=== PATIENT | male | born 1965 | race Caucasian/White ===

== ENCOUNTER 2020-08-11 09:29 | Day surgery (SDC) | payer BC ==
[~2020-08-11 09:29] MED LIST: CEPH500 PO; CLIN300 PO; CYCL10 PO; HYDACE5 PO; Hydrocodone-Ap1 EA23 PO; IBUP600 PO; Janumet 50-5001 EACH PO; Keflex500 MG PO; METF500 PO; Percocet 5-3251 EACH PO; Prednisone10 MG PO; SILD50TA PO; Valium5 MG PO
--- NOTE | 2020-08-11 11:38 | NUR ---
PT TRANSFERED TO STEP FROM RADIOLOGY. PT COMFORTABLE LYING IN BED. NO C/O PAIN OR NAUSEA. OP SITE C/D/I. PT TOLERATING WATER AND WATCHING TV. WILL CONTIUNUE TO MONITOR. CALL LIGHT WITHIN REACH.
--- NOTE | 2020-08-11 13:23 | NUR ---
PT TRANSFERED TO RADIOLOGY FOR F/U SCAN.
== END 2020-08-11 23:23 | disposition home or self-care (01) ==
LOC: CT 09:29
DX: E11.22 Type 2 diabetes mellitus with diabetic chronic kidney disease (principal); E11.319 Type 2 diabetes mellitus with unspecified diabetic retinopathy without macular edema; I12.9 Hypertensive chronic kidney disease with stage 1 through stage 4 chronic kidney disease, or unspecified chronic kidney disease; D63.1 Anemia in chronic kidney disease; N18.4 Chronic kidney disease, stage 4 (severe); N25.81 Secondary hyperparathyroidism of renal origin; E55.9 Vitamin D deficiency, unspecified; Z79.899 Other long term (current) drug therapy; Z79.84 Long term (current) use of oral hypoglycemic drugs
CPT/HCPCS: 50200; 77012; 88329

== ENCOUNTER 2021-12-27 00:47 | Inpatient (IN) | payer BC ==
[~2021-12-27] VITALS: Ht 170.2 cm; Wt 136.9 kg
[2021-12-27] MEDS ORDERED: CATAPRES0.1 MG PO (01:12)
[2021-12-27] MEDS ORDERED: GLIP5 PO (01:13)
[2021-12-27] MEDS ORDERED: NEBIVOLOL HCL10 MG PO (01:13)
[2021-12-27 01:47] LABS: Albumin, Blood 2.7 g/dL (3.4-5.0); Albumin/Globulin Ratio 0.6 (0.8-1.8); Bilirubin, Total 0.3 mg/dL (0.1-1.0); Bun/Creatinine Ratio 7.5 (12.0-20.0); Calcium, Blood 7.2 mg/dL (8.5-10.1); Creatinine, Blood 6.66 mg/dL (0.60-1.20); Globulin, Blood 4.3 g/dL (2.2-4.0); Potassium, Blood 5.6 mmol/L (3.5-5.5)
[2021-12-27 01:50] LABS: BASOPHILS ABSOLUTE AUTO 0.04 K/mm3 (0.00-0.23); BASOPHILS PERCENT AUTO 0 % (0-2); EOSINOPHILS ABSOLUTE AUTO 0.22 K/mm3 (0.00-0.68); EOSINOPHILS PERCENT AUTO 2 % (0-6); Hematocrit 35.2 % (37.0-53.0); Hemoglobin 11.1 g/dL (13.5-17.5); IMMATURE GRAN PERCENT AUTO 1 % (0-1); LYMPHOCYTES ABSOLUTE AUTO 1.62 K/mm3 (0.84-5.20); LYMPHOCYTES PERCENT AUTO 14 % (21-46); MONOCYTES ABSOLUTE AUTO 0.79 K/mm3 (0.16-1.47); MONOCYTES PERCENT AUTO 7 % (4-13); Mean Corpuscular HGB 29.1 pg (26.0-34.0); Mean Corpuscular HGB Conc 31.5 g/dL (31.5-36.5); Mean Corpuscular Volume 92 fL (80-100); Mean Platelet Volume 10.6 fL (9.1-12.4); NEUTROPHILS ABSOLUTE AUTO 9.16 K/mm3 (1.96-9.15); NEUTROPHILS PERCENT AUTO 77 % (41-73); Platelet Count 320 K/mm3 (150-400); RDW Coefficient Variation 13.9 % (11.7-14.2); RDW Standard Deviation 47.2 fL (35.1-46.3); Red Blood Cell Count 3.81 M/mm3 (4.30-5.90); White Blood Cell Count 11.93 K/mm3 (4.00-11.30)
[2021-12-27 04:24] LABS: Source, Urine Foley catheter
[2021-12-27 04:27] LABS: Bilirubin, Urine Neg (Neg); Blood, Urine 2+ (Neg); Glucose Qualitative, Urine 3+ (Neg); Ketones, Urine Neg (Neg); Leukocyte Esterase, Urine Neg (Neg); Nitrite, Urine Neg (Neg); Protein, Urine 4+ (Neg); Urobilinogen, Urine NORM (Normal)
[2021-12-27 04:40] LABS: Appearance, Urine Clear (Clear); Color, Urine Pale Yellow (P-Yellow)
[2021-12-27 04:41] LABS: Bacteria Not Seen /hpf; Squamous Epithelial Cells Not Seen /hpf (Few); White Blood Cells, Urine Not Seen /hpf (0-5)
[2021-12-27 05:30] LABS: CPK Creatine Kinase 215 U/L (39-308)
--- NOTE | 2021-12-27 07:49 | NUR ---
DR. EDMONDS CALLED AND INFORMED PATIENT ON WAY FROM ER AND ER NURSE REPORTS PATIENT THROWING UP BUT IS NOT YET ABLE TO RECEIVE PRN ZOFRAN AGAIN. STATED SHE WOULD LOOK AT PATIENT CHART AND PLACE ORDERS FOR ANTIEMETIC.
--- NOTE | 2021-12-27 08:30 | NUR ---
INITIAL ASSESSMENT PATIENT ARRIVED TO ICU FROM ER JUST BEFORE 0800. PATIENT ALERT AND ORIENTED X 4, AFEBRILE. PATIENT WEAK BUT ABLE TO MOVE ALL EXTREMITIES AND MOVE SELF OVER FROM ER GURNEY TO ICU BED. LUNGS CLEAR THROUGHOUT. PATIENT SATTING 90% AND GREATER ON RA. PATIENT RECEIVING LASIX. PATIENT IN SR WITH BBB. HR 60S TO 70S. SBP 180S. LEGS AND FEET EDEMATOUS. PATIENT GIVEN PRN REGLAN FOR COMPLAINTS OF NAUSEA. MERRILL IN PLACE, DRAINING YELLOW COLORED URINE. ABRASIONS AND SCABS NOTED TO BLES. PATIENT STATES THAT HE HAS BEEN WORKING IN HIS GARAGE LATELY AND BUMPING HIS LEGS. NITRO DRIP INFUSING AT 60 MCG/ MINUTE. PATIENT ORIENTED TO UNIT, ROOM AND CALL SYSTEM. BED LOW AND CALL LIGHT IN REACH. WILL CONTINUE TO MONITOR.
[2021-12-27] MEDS ORDERED: INSULANI (08:40)
[2021-12-27] MEDS ORDERED: BUME1 PO (08:40)
--- NOTE | 2021-12-27 12:30 | NUR ---
PATIENT AFEBRILE. NO COMPLAINTS OF PAIN. PATIENT IN SB TO ST, HR 50S TO 60S. SBP IN THE 150S. PATIENT DENIES NAUSEA. BOWEL SOUNDS HYPERACTIVE. BLOOD SUGAR 211; COVERAGE GIVEN. NO OTHER ACUTE CHANGES TO NOTE ON AT THIS TIME. WILL CONTINUE TO MONITOR.
[2021-12-27 12:35] LABS: BASOPHILS ABSOLUTE AUTO 0.04 K/mm3 (0.00-0.23); BASOPHILS PERCENT AUTO 0 % (0-2); EOSINOPHILS ABSOLUTE AUTO 0.04 K/mm3 (0.00-0.68); EOSINOPHILS PERCENT AUTO 0 % (0-6); Hemoglobin 9.6 g/dL (13.5-17.5); IMMATURE GRAN ABSOLUTE AUTO 0.09 K/mm3 (0.00-0.10); IMMATURE GRAN PERCENT AUTO 1 % (0-1); LYMPHOCYTES ABSOLUTE AUTO 1.09 K/mm3 (0.84-5.20); LYMPHOCYTES PERCENT AUTO 7 % (21-46); MONOCYTES ABSOLUTE AUTO 0.98 K/mm3 (0.16-1.47); MONOCYTES PERCENT AUTO 7 % (4-13); Mean Corpuscular HGB 28.9 pg (26.0-34.0); Mean Corpuscular Volume 93 fL (80-100); Mean Platelet Volume 10.4 fL (9.1-12.4); NEUTROPHILS ABSOLUTE AUTO 12.95 K/mm3 (1.96-9.15); NEUTROPHILS PERCENT AUTO 85 % (41-73); Platelet Count 301 K/mm3 (150-400); RDW Coefficient Variation 13.8 % (11.7-14.2); Red Blood Cell Count 3.32 M/mm3 (4.30-5.90); White Blood Cell Count 15.19 K/mm3 (4.00-11.30)
[2021-12-27 13:10] LABS: Albumin, Blood 2.2 g/dL (3.4-5.0); Albumin/Globulin Ratio 0.6 (0.8-1.8); Bilirubin, Total 0.2 mg/dL (0.1-1.0); Bun/Creatinine Ratio 7.3 (12.0-20.0); Calcium, Blood 6.6 mg/dL (8.5-10.1); Creatinine, Blood 6.95 mg/dL (0.60-1.20); Globulin, Blood 3.6 g/dL (2.2-4.0); Potassium, Blood 6.6 mmol/L (3.5-5.5); Total Protein, Blood 5.8 g/dL (6.4-8.2)
--- NOTE | 2021-12-27 13:29 | NUR ---
DR. EDMONDS CALLED AGAIN AND INFORMED THAT PATIENT'S BLOOD PRESSURE STILL 150S TO 160S ON 35 MCG/ MINUTE NITRO DRIP. INFORMED THAT MEAN AT 101 AND ASKED IF STILL WANTED TO FOLLOW PARAMETER FOR NITRO DRIP OF MEAN [address] EDMONDS STATED YES BUT TO TRY AND DECREASE DRIPDR. ALSO INFORMED THAT POTASSIUM HAS INCREASED FROM 5.6 TO 6.6. NO ORDERS RECEIVED.
[2021-12-27 14:30] LABS: CPK Creatine Kinase 169 U/L (39-308)
--- NOTE | 2021-12-27 17:00 | NUR ---
PATIENT AFEBRILE. HR 50S TO 60S. SBP IN THE 60S. NITRO DRIP AT 25 MCG/ MINUTE. BLOOD SUGAR AT 99; NO COVERAGE INDICATED OR GIVEN. NO OTHER ACUTE CHANGES TO NOTE ON AT THIS TIME. WILL CONTINUE TO MONITOR.
--- NOTE | 2021-12-27 18:12 | NUR ---
CALLED DR. EDMONDS AFTER REQUESTED A COUPLE OF HOURS AGO FOR NITRO DRIP TO BE TITRATED TO OFF OVER 2 HOURS AND TO CALL BACK WITH BP. DR. EDMONDS INFORMED THAT BP IN THE 170S AND THAT, THAT WAS WITH THE METOPROLOL BEING GIVEN EARLY. INFORMED THAT PATIENT HAS PRN HYDRALAZINE BUT THAT THEY ARE NOT ABLE TO RECEIVE IT YET BASED ON ORDER. ASKED IF SHE WOULD LIKE DOSE INCREASED; NO ORDER RECEIVED. DR. EDMONDS STATED TO GIVE HYDRALAZINE WHEN NEXT ABLE TO IF SBP OVER 160 AND TO DC NITRO DRIP.
--- NOTE | 2021-12-27 19:06 | NUR ---
SHIFT SUMMARY PATIENT REMAINED ALERT AND ORIENTED X 4, AFEBRILE. PATIENT HAS HAD NO COMPLIANTS OF PAIN. PATIENT HAS BEEN GETTING AROUND IN BED WELL. PATIENT DOES NEED REMINDED TO REPOSITION SELF IN BED. PATIENT HAS REMAINED SATTING 90% AND GREATER ON RA. LUNGS CLEAR. PATIENT RECEIVED LASIX IN ER AND ICU. PATIENT SB TO SR, HR 50S TO 80S. SBP 130S TO 180S. LEGS REMAIN EDEMATOUS. PATIENT GIVEN PRN REGLAN THIS AM FOR NAUSEA. NO OTHER COMPLAINTS OF NAUSEA THIS SHIFT. MERRILL DRAINED 2150 MLS OF YELLOW COLORED URINE THIS SHIFT. NO CHANGES TO SKIN NOTED. NITRO AT 60 MCG/ MINUTE WHEN ARRIVED FROM ER. NITRO DRIP OFF AND DC'D PER DR. EDMONDS. DR. EDMONDS AWARE THAT BLOOD PRESSURES ARE STILL RUNNING HIGH. US RENAL WITH BLADDER AND ECHO BOTH PERFORMED TODAY. D50 AND INSULIN GIVEN FOR HIGH POTASSIUM OF 6.6. BLOOD SUGARS RANGED FROM 99 TO 276. PATIENT HAD GOOD APPETITE; ON ADA DIET. PATIENT CONTENT AT THIS TIME; NO COMPLAINTS. BED LOW, CALL LIGHT IN REACH. REPORT GIVEN TO ASSUMING ADMINISTRATIVE PROGRAM SPECIALIST NURSE.
--- NOTE | 2021-12-27 19:15 | NUR ---
ASSUMED CARE OF PT. REPORT RECEIVED FROM KAROL MURILLO. PT APPEARS TO BE IN NO APPARENT DISTRESS, AFEBRILE, DENIES PAIN, SOB, BUT C/O FEELING COLD. WARM BLANKETS PROVIDED. HE IS AOX4, PERRL 3MM, LS CLEAR, HEART RRR, GENERAL EDEMA WITH 3+ EDEMA TO BLE. PT HAS MERRILL CATHETER IN PLACE DRAINING CLEAR YELLOW URINE. BP ELEVATED, 180'S/80'S.
[2021-12-27 19:19] LABS: Albumin, Blood 2.1 g/dL (3.4-5.0); Anion Gap 7 mmol/L (6-16); Blood Urea Nitrogen 53 mg/dL (8-24); Bun/Creatinine Ratio 7.7 (12.0-20.0); CO2, Blood 22 mmol/L (21-32); Calcium, Blood 6.6 mg/dL (8.5-10.1); Chloride, Blood 107 mmol/L (98-108); Glomerular Filtration Rate 8 (60-); Glucose, Blood 279 mg/dL (70-99); Phosphorus, Blood 4.5 mg/dL (2.5-4.9); Potassium, Blood 6.1 mmol/L (3.5-5.5); Sodium, Blood 136 mmol/L (136-145)
--- NOTE | 2021-12-27 19:39 | NUR ---
DR SHELBY UPDATED WITH STAT RENAL PANEL. NEW MEDICATION ORDERS RECEIVED.
--- NOTE | 2021-12-27 22:00 | NUR ---
DR SHELBY AT BEDSIDE DISCUSSING POC WITH PT. PT AGREES TO DIALYSIS AND PERMACATH PLACEMENT IN AM. NEW MEDICATION ORDERS RECEIVED FOR HTN.
--- NOTE | 2021-12-27 22:50 | NUR ---
DR. JOSE CONTACTED FOR MEDICATIONS ORDERS FOR SLEEP PER PT REQUEST. NEW ORDERS RECEIVED.
[2021-12-28 03:31] LABS: Hematocrit 28.6 % (37.0-53.0); Hemoglobin 8.7 g/dL (13.5-17.5); Mean Corpuscular HGB 28.6 pg (26.0-34.0); Mean Corpuscular HGB Conc 30.4 g/dL (31.5-36.5); Mean Corpuscular Volume 94 fL (80-100); Mean Platelet Volume 10.3 fL (9.1-12.4); Platelet Count 251 K/mm3 (150-400); RDW Coefficient Variation 14.1 % (11.7-14.2); RDW Standard Deviation 47.9 fL (35.1-46.3); Red Blood Cell Count 3.04 M/mm3 (4.30-5.90); White Blood Cell Count 14.68 K/mm3 (4.00-11.30)
[2021-12-28 03:34] LABS: Influenza A, PCR NEGATIVE (NEGATIVE); Influenza B, PCR NEGATIVE (NEGATIVE); Resp Syncytial Virus, PCR NEGATIVE (NEGATIVE); SARS-Cov-2 (COVID-19) PCR, MMC NEGATIVE (NEGATIVE)
[2021-12-28 03:47] LABS: Anion Gap 8 mmol/L (6-16); Blood Urea Nitrogen 54 mg/dL (8-24); Bun/Creatinine Ratio 7.7 (12.0-20.0); CO2, Blood 20 mmol/L (21-32); Calcium, Blood 6.7 mg/dL (8.5-10.1); Chloride, Blood 108 mmol/L (98-108); Creatinine, Blood 7.03 mg/dL (0.60-1.20); Glomerular Filtration Rate 8 (60-); Glucose, Blood 130 mg/dL (70-99); Phosphorus, Blood 4.4 mg/dL (2.5-4.9); Potassium, Blood 5.1 mmol/L (3.5-5.5); Sodium, Blood 136 mmol/L (136-145)
--- NOTE | 2021-12-28 05:44 | NUR ---
PT SLEEPS RESTLESSLY WITH BRIEF INTERRUPTIONS FOR CARE. HE WEARS HIS CPAP WHEN GOING TO SLEEP, BUT TAKES IT OFF DURING SLEEP. BP WNL ON CURRENT MEDICATIONS. I/O 475/1150. PT IS NPO SINCE MIDNIGHT FOR PROCEDURE. PLAN TO CALL CONSULT TO DR GONZALEZ FOR PERMACATH PLACEMENT IN AM. WILL CONTINUE TO MONITOR AND REPORT TO ONCOMING SHIFT.
--- NOTE | 2021-12-28 08:13 | NUR ---
CALLED DR. SHELBY AND INFORMED HR IN THE 50S AND BLOOD PRESSURE 128/58 BEFORE GIVING AM HTN DRUGS. ORDERS RECEIVED.
--- NOTE | 2021-12-28 08:30 | NUR ---
INITIAL ASSESSMENT PATIENT ALERT AND ORIENTED X 4, AFEBRILE. PATIENT DENIES PAIN OR DISCOMFORT. PATIENT SLIGHTLY WEAK BUT ABLE TO REPOSITION SELF BUT DOES NEED REMINDERS. LUNG SOUNDS CLEAR. PATIENT SATTING 90% AND GREATER ON RA. PATIENT WEARS CPAP AT HS. PATIENT SB WITH L BBB AND PROLONGED QT. HR IN THE 50S. SBP 1-TEENS TO 130S. 3+ EDEMA NOTED TO LEGS AND FEET. LEGS APPEAR SHINY AND TIGHT. PATIENT DENIES NAUSEA. NPO AT THIS TIME FOR PENDING PERMACATH PLACEMENT TODAY. NORMOACTIVE BOWEL SOUNDS NOTED. LAST BM 2 DAYS AGO. MERRILL DRAINING YELLOW COLORED URINE. ABRASIONS/ SCABS TO BLES. SKIN PALE AND COOL. IVS FLUSHED AND SALINE LOCKED. BED LOW, CALL LIGHT IN REACH. WILL CONTINUE TO MONITOR PATIENT FREQUENTLY THROUGHOUT SHIFT.
--- NOTE | 2021-12-28 12:15 | NUR ---
PATIENT AFEBRILE. HR IN THE 50S. SBP IN THE 120S. PATIENT SATTING 90% AND GREATER ON RA. BLOOD SUGAR 127. PATIENT OOB TO CHAIR WITH 1 PERSON ASSIST. NO COMPLAINTS. NO OTHER ACUTE CHANGES TO NOTE ON. WILL CONTINUE TO MONITOR.
--- NOTE | 2021-12-28 12:35 | NUR ---
PATIENT TAKEN TO NEWSPAPER COLUMNIST FOR PERMACATH PLACEMENT.
--- NOTE | 2021-12-28 16:39 | NUR ---
PATIENT HAS BEEN SLEEPING. DIALYSIS BEING PERFORMED IN ROOM. PATIENT AFEBRILE. HR 40S TO 50S. SBP 150S TO 160S. NO OTHER ACUTE CHANGES AT THIS TIME. NO COMPLAINTS. WILL CONTINUE TO MONITOR.
--- NOTE | 2021-12-28 18:46 | NUR ---
SHIFT SUMMARY PATIENT REMAINED ALERT AND ORIENTED X 4, AFEBRILE. PATIENT HAD NO COMPLAINTS OF PAIN. PATIENT WEAK BUT ABLE TO MOVE AROUND IN BED. PATIENT, HOWEVER, REFUSED MOST OF THE DAY TO TURN OFF OF HIS BACK. PATIENT 1 PERSON ASSIST TO CHAIR. PATIENT REMAINED ON RA WHILE AWAKE AND ON CPAP WHILE SLEEPING. PATIENT REMAINED SB TO SR, HR 40S TO 50S. SBP 1-TEENS TO 180S. LEGS REMAIN VERY EDEMATOUS. NO COMPLAINTS OF NAUSEA THIS SHIFT. NO BM THIS SHIFT. PATIENT ON CARDIAC/ ADA DIET AND HAS GOOD APPETITE. 850 MLS OF YELLOW URINE DRAINED FROM MERRILL. NO CHANGES TO SKIN NOTED. IVS REMAIN SALINE LOCKED. METOPROLOL AND CATAPRES DOSES LOWERED THIS SHIFT. HR PARAMETERS SET FOR METOPROLOL AND CATAPRES. PERMACATH PLACED THIS SHIFT. PATIENT HAD DIALYSIS AND HAD 1400 MLS PULLED OFF. BLOOD SUGARS RANGED FROM 120S TO 150S. NO COMPLAINTS AT THIS TIME. BED LOW, CALL LIGHT IN REACH. REPORT WILL BE GIVEN TO ASSUMING WATER SYSTEMS ENGINEER NURSE SHORTLY.
--- NOTE | 2021-12-28 20:58 | NUR ---
ASSUMED CARE PATIENT IS ALERT AND ORIENTED X4. FOLLOWS COMMANDS AND COOPERATIVE WITH CARE. 02 SATS >95% ON RA, DENIES SOB. HR SR @60s WITH BBB AND PROLONGED QT. BP HYPERTENSIVE, MEDICATED PER EMAR. EDEMA IN BLE, ELEVATED ON PILLOWS. MERRILL DRAINING CLEAR YELLOW TO GRAVITY. PATIENT ABLE TO REPOSITON SELF IN BED. CALL LIGHT IN REACH.
[2021-12-29 03:41] LABS: Hematocrit 28.6 % (37.0-53.0); Hemoglobin 8.9 g/dL (13.5-17.5)
[2021-12-29 04:07] LABS: Anion Gap 6 mmol/L (6-16); Blood Urea Nitrogen 50 mg/dL (8-24); Bun/Creatinine Ratio 7.9 (12.0-20.0); CO2, Blood 26 mmol/L (21-32); Calcium, Blood 7.1 mg/dL (8.5-10.1); Chloride, Blood 106 mmol/L (98-108); Creatinine, Blood 6.29 mg/dL (0.60-1.20); Glomerular Filtration Rate 9 (60-); Glucose, Blood 177 mg/dL (70-99); Phosphorus, Blood 5.2 mg/dL (2.5-4.9); Potassium, Blood 5.3 mmol/L (3.5-5.5); Sodium, Blood 138 mmol/L (136-145)
--- NOTE | 2021-12-29 06:02 | NUR ---
SHIFT SUMMARY PATIENT IS ALERT AN ORIENTED X4. 02 SATS >93% ON CPAP THROUGH THE NIGHT WHILE SLEEPING. BP STABLE. HR SB WITH BBB IN THE 50s. MERRILL DRAINING TO GRAVITY. PATIENT SLEPT MOST THE NIGHT, ABLE TO REPOSITION SELF BUT INSISTED ON SLEEPING ON HIS BACK MOSTLY. NO ACUTE CHANGES. CALL LIGHT IN REACH.
[2021-12-29 10:10] LABS: HBSAG SCREEN Negative (Negative); HEP A AB, IGM Negative (Negative); HEP B CORE AB, IGM Negative (Negative); HEP C VIRUS AB <0.1 (0.0-0.9)
--- NOTE | 2021-12-29 10:28 | NUR ---
ASSUMED CARE OF PT, REPORT RCVD FROM KAROL PARHAM. PT ALERT AND ORIENTED, PLEASANT AND COOPERATIVE WITH CARE. PT ON CPAP OVERNIGHT, CURRENTLY ON ROOM AIR WITH SATS>90%. PT DENIES ANY NEEDS AT THIS TIME. PLAN FOR DIALYSIS @ 0900. PT UPDATED WITH PLAN OF CARE. SEE FULL SHIFT ASSESSMENT.
--- NOTE | 2021-12-29 12:47 | NUR ---
PT BACK FROM DIALYSIS. REMOVED MERRILL CATHETER AND ENCOURAGED PT TO AMBULATE.
--- NOTE | 2021-12-29 15:11 | NUR ---
MESSAGE LEFT FOR BOTTLE LINE WORKER REGARDING PT'S NEED FOR OUTPATIENT DIALYSIS. PER DR. SHELBY, PT OKAY TO DISCHARGE ONCE DIALYSIS IN PLACE OUTPATIENT.
--- NOTE | 2021-12-29 16:54 | NUR ---
SPOKE WITH [facility] ADMITTING. PT HAS DIALYSIS BED HELD PENDING: HEP B PANEL, TB, DIALYSIS FLOW SHEET, AND CHEST XRAY. ORDERS FOR BLOOD TESTING PLACED. PT AWARE OF PLAN AND APPEARS MOTIVATED TO DISCHARGE AND PARTICIPATE IN OUTPATIENT DIALYSIS. [facility], [facility] ADMITTING FAX # .
--- NOTE | 2021-12-29 18:07 | NUR ---
SHIFT SUMMARY PT REMAINS ALERT AND ORIENTED, PLEASANT AND COOPERATIVE WITH CARE. PT INDEPENDENT IN ROOM. PT DENIES NEEDS. VSS T/O SHIFT. WILL REPORT TO ONCOMING NURSE.
--- NOTE | 2021-12-29 19:00 | NUR ---
ASSUMPTION OF CARE PT SITTING IN CHAIR TALKING ON CELL PHONE. PT STANDS UP AND MOVES AROUND ROOM INDEPENDENTLY WITH STEADY GAIT. PT IS PLEASANT, PARTICIPATES IN CONVERSATION. WHEN ASKED HOW PT IS FEELING HE STS "I FEEL GREAT. I WOULD LIKE TO GO HOME". PT COOPERATIVE WITH CARE AND UP TO DATE WITH PLAN. PT DENIES PAIN. VSS. PT GIVEN WARM BLANKETS, FRESH WATER AND PM MEDS. PT REQUESTING MEDICATION FOR SLEEP LATER IN EVENING BUT DENIES ADDITIONAL NEEDS AT THIS TIME. SEE SHIFT ASSESSMENT.
--- NOTE | 2021-12-29 23:58 | NUR ---
UPDATE PT STS HE WOULD LIKE TO GET READY FOR BED. PT GETS UP INDEPENDENTLY TO VOID IN TOILET, STEADY GAIT. PT PROVIDED WARM BLANKETS AND MEDICATED PER EMAR. CPAP PLACED AT THIS TIME. PT REQUESTS UNINTERRUPTED REST AND DENIES ADDITIONAL NEEDS AT THIS TIME, VS REMAIN STABLE.
[2021-12-30 03:26] LABS: Hematocrit 29.2 % (37.0-53.0); Hemoglobin 9.2 g/dL (13.5-17.5)
[2021-12-30 03:45] LABS: Anion Gap 6 mmol/L (6-16); Blood Urea Nitrogen 43 mg/dL (8-24); CO2, Blood 27 mmol/L (21-32); Calcium, Blood 7.5 mg/dL (8.5-10.1); Chloride, Blood 103 mmol/L (98-108); Glomerular Filtration Rate 11 (60-); Glucose, Blood 167 mg/dL (70-99); Phosphorus, Blood 4.9 mg/dL (2.5-4.9); Potassium, Blood 4.5 mmol/L (3.5-5.5); Sodium, Blood 136 mmol/L (136-145)
--- NOTE | 2021-12-30 06:17 | NUR ---
SHIFT SUMMARY PT HAS SLEPT THROUGH THE MAJORITY OF THE NIGHT, WAKES TO VERBAL STIMULI. PT REMAINS ALERT AND ORIENTED. DR SHELBY ROUNDED THIS AM, CONTINUE PLAN FOR OUTPATIENT DIALYSIS. WILL REPORT TO ONCOMING RN.
--- NOTE | 2021-12-30 13:51 | NUR ---
Pt. is sitting up in a chair and is alert. Pt. welcomes my visit. Pt. is unsettled about the limited availablity for ongoing dialysis in our area. Pt. also verbalizes gratitude for the dialysis care received in ICU. Listen empathetically. Pt. displays evidence of a renewed commitment to fight for his health. Develop rapport. Leivasy for pt. Pt. verbalizes gratitude for the visit, and the prayer in particular.
--- NOTE | 2021-12-30 18:01 | NUR ---
SHIFT SUMMARY NO ACUTE CHANGES THIS SHIFT. PT CONTINUES TO AWAIT PLACEMENT FOR OUTPT DIALYSIS. NO DIALYSIS THIS SHIFT. SEE SHIFT ASSESSMENT FOR FULL ASSESSMENT. PT INDEPENDENT. USES CALL LIGHT APPROPRIATELY, ABLE TO MAKE NEEDS KNOWN. VSS. WILL CONTINUE TO MONITOR UNTIL REPORT TO ONCOMING NURSE.
[2021-12-31 04:30] LABS: Hematocrit 28.2 % (37.0-53.0); Hemoglobin 9.1 g/dL (13.5-17.5)
[2021-12-31 04:57] LABS: Anion Gap 7 mmol/L (6-16); Blood Urea Nitrogen 53 mg/dL (8-24); Bun/Creatinine Ratio 8.2 (12.0-20.0); CO2, Blood 26 mmol/L (21-32); Calcium, Blood 7.5 mg/dL (8.5-10.1); Chloride, Blood 103 mmol/L (98-108); Creatinine, Blood 6.46 mg/dL (0.60-1.20); Glomerular Filtration Rate 9 (60-); Glucose, Blood 185 mg/dL (70-99); Phosphorus, Blood 5.5 mg/dL (2.5-4.9); Potassium, Blood 5.1 mmol/L (3.5-5.5); Sodium, Blood 136 mmol/L (136-145)
--- NOTE | 2021-12-31 05:29 | NUR ---
PATIENT ARRIVED TO ROOM 324 FROM ICU2 VIA WHEELCHAIR. HE IS ALERT AND ORIENTED X4 WITH NO COMPLAINTS OF PAIN OR SHORTNESS OF BREATH. PATIENT SELF TRANSFERRED INTO BED AND WAS ORIENTED WITH NEW SURROUNDINGS. CALL LIGHT WITHIN REACH.
--- NOTE | 2021-12-31 05:49 | NUR ---
TRANSFER TO RM 324 PT TRANSFERED TO RM 324 VIA WHEELCHAIR AT 0508. PT IS ALERT/ ORIENTED X4 AND ABLE TO MAKE HIS NEEDS KNOWN. PT SLEPT FOR ABOUT 6 HOURS LAST NIGHT AND MOST OF THE TIME ON CPAP. WHILE AWAKE IS ON RA. VSS. IS ABLE TO AMBULATE ON HIS OWN IN THE ROOM. SEE SHIFT ASSESSMENT FOR FULL ASSESSMENT. REPORT GIVEN TO MEDICAL FLOOR RN.
[2021-12-31 14:12] LABS: QUANTIFERON MITOGEN VALUE >10.00 IU/mL (.); QUANTIFERON TB1 AG VALUE 0.06 IU/mL (.); QUANTIFERON TB2 AG VALUE 0.03 IU/mL (.); QUANTIFERON-TB GOLD PLUS Negative (Negative)
--- NOTE | 2021-12-31 18:05 | NUR ---
SHIFT SUMMARY PT HAD DIALYSIS THIS AM AND TOLERATED IT WELL. HE IS ANXIOUS TO BE DISCHARGED HOME AND GET A CHAIR. HE IS CALM AND COMPLAINT WITH CARE. WILL CONTINUE TO MONITOR.
[2022-01-01 05:34] LABS: Hematocrit 29.3 % (37.0-53.0); Hemoglobin 9.4 g/dL (13.5-17.5)
[2022-01-01 06:03] LABS: Albumin, Blood 2.1 g/dL (3.4-5.0); Anion Gap 6 mmol/L (6-16); Blood Urea Nitrogen 46 mg/dL (8-24); Bun/Creatinine Ratio 7.6 (12.0-20.0); CO2, Blood 26 mmol/L (21-32); Calcium, Blood 7.5 mg/dL (8.5-10.1); Chloride, Blood 104 mmol/L (98-108); Creatinine, Blood 6.09 mg/dL (0.60-1.20); Glomerular Filtration Rate 10 (60-); Glucose, Blood 197 mg/dL (70-99); Phosphorus, Blood 4.7 mg/dL (2.5-4.9); Potassium, Blood 4.4 mmol/L (3.5-5.5); Sodium, Blood 136 mmol/L (136-145)
--- NOTE | 2022-01-01 06:22 | NUR ---
SHIFT SUMMARY PATIENT ALERT AND ORIENTED. HAD NO COMPLAINTS OF PAIN OR SHORTNESS OF BREATH. NO ACUTE ISSUES NOTED OVERNIGHT. CALL LIGHT WITHIN REACH. REPORT GIVEN TO ONCOMING RN.
--- NOTE | 2022-01-01 18:21 | NUR ---
SHIFT SUMMARY NO ACUT CHNAGES. STILL HYPERTENSIVE. PT WAS ABLE TO WALK AROUND THE [place] FOR EXCERCISE. HE WAS EVALUATED BY OT AND PT AND WAS RELEASED FROM BOTH. WILL CONTINUE TO MONITOR.
--- NOTE | 2022-01-02 04:31 | NUR ---
Pt's BP at start of shift 7:41pm 190/88, scheduled meds given and BP rechecked at 10:35 pm 171/79, BP spot checked at 2:15 am 190/81 PRN hydralazine given. BP rechecked 3:32 am and SBP increased to 195/81. MD called for a consult. MD ordered repeat PRN 10mg Hydralazine.
--- NOTE | 2022-01-02 06:11 | NUR ---
Pt is independent and able to ambulate and tranfer in and out of bed. Patient blood pressure has been high throughout the night and evening. PRN hydralazine 10 mg given for BP of 190/81. Recheck in 1 hour was 195/81. Informatics Spec called MD and MD advised to repeate Hydalizine of 10 mg. recheck was 173/80 client resting in bed. Will report to oncoing RN upon arrival.
--- NOTE | 2022-01-02 21:25 | NUR ---
VOICED DESIRE FOR MORE FLUIDS, GIVEN ENOUGH TO TAKE HSMEDS. AFFECT SOMEWHAT FLAT. FLUID INTAKE REMAINS LIMITED TO PREVENT FLUID OVERLOAD. CALL LIGHT IN REACH
--- NOTE | 2022-01-03 03:55 | NUR ---
KNIT GOODS CUTTER HAND SUMMARY AWAKE UNTIL HS, TOLERATED MEDS WITH SMALL AMT OF WATER, VOICED FRUSTRATION RE LIMITED FLUID INTAKE. BP LOWER THAN NOTED LAST NIGHT. WILL CONTINUE TO MONITOR AND ADMINISTER MEDS NEEDED - SEE MAR FOR DETAILS. CPAP IN USE FOR SLEEP APNEA. HAS BEEN RESTING QUIETLY WITH FEW INTERRUPTIONS SINCE. CALL LIGHT IN REACH.
[2022-01-03 05:56] LABS: Hematocrit 29.1 % (37.0-53.0); Hemoglobin 9.3 g/dL (13.5-17.5)
[2022-01-03 06:22] LABS: Albumin, Blood 2.3 g/dL (3.4-5.0); Anion Gap 8 mmol/L (6-16); Blood Urea Nitrogen 69 mg/dL (8-24); Bun/Creatinine Ratio 9.1 (12.0-20.0); CO2, Blood 21 mmol/L (21-32); Calcium, Blood 7.7 mg/dL (8.5-10.1); Chloride, Blood 107 mmol/L (98-108); Creatinine, Blood 7.56 mg/dL (0.60-1.20); Glomerular Filtration Rate 7 (60-); Glucose, Blood 212 mg/dL (70-99); Phosphorus, Blood 5.8 mg/dL (2.5-4.9); Potassium, Blood 4.8 mmol/L (3.5-5.5); Sodium, Blood 136 mmol/L (136-145)
--- NOTE | 2022-01-03 17:51 | NUR ---
SHIFT SUMMARY; PATIENT UP TO SHOWER TODAY. HE IS INDEPENDANT IN ROOM AND RINSES HIS CLOTHING AND HANGS THEM TO DRY IN BATHROOM. HE REMAINS HYPERTENSIVE EVEN AFTER ADMINISTERING HYDRALAZINE. B/P IS 162 SYSTOLIC AND PULSE OF 73. PAITENT IS NOT SYMPTOMATIC. NO HEADACHE NO CHEST PAIN NO SOB. PATIENT RECEIVED DIALYSIS IN ROOM TODAY. HE ASKS MANY QUESTIONS OF DIALYSIS NURSE JESSICA ABOUT DIET AND ALSO PERITONEAL DIALYSIS. IN ROOM AND ADVISES PATIENT THAT HE WILL NEED TO LOSE 15 TO 20 POUNDS AND STAY ON A RENAL DIET AND BE ON HEMODIALYSIS FOR 3 MONTHS BEFORE HE WILL CONSIDER HIM FOR PERITONEAL DIALYSIS. PATIENT VERBALIZED UNDERSTANDING. PLAN IS FOR DISCHARGE TUESDAY AFTER DIALYSIS AND BE ADMITTED TO [facility] FOR TREATMENT ON TUESDAY PER COLIN ROBERTO RNBUHR DRESSER NOTE. WILL REMAIN AVAILABLE FOR THIS PATIENT FOR ANY WANTS OR NEEDS UNTIL SHIFT HAND OFF FOR NOC SHIFT. JEANNE LOPEZ RN
--- NOTE | 2022-01-04 03:56 | NUR ---
RN TESTING SUMMARY CONTINUES ON FLUID RESTRICTION FOR FLUID OVERLOAD. ANTIHYPERTENSIVE MEDS ADMINISTERED ORDERED - SEE MAR FOR DETAILS. ALTHOUGH SBP HIGH, MEDS EFFECTIVE. HAS BEEN RESTING QUIETLY FOR MOST OF THE SHIFT SINCE HS, AFTER HE WATCHED THE SUPERBOWL. CPAP IN USE. NO NOTED S/S ACUTE DISTRESS. CALL LIGHT IN REACH
[2022-01-04 04:48] LABS: Hematocrit 31.3 % (37.0-53.0); Hemoglobin 10.1 g/dL (13.5-17.5)
[2022-01-04 05:16] LABS: Albumin, Blood 2.5 g/dL (3.4-5.0); Anion Gap 11 mmol/L (6-16); Blood Urea Nitrogen 56 mg/dL (8-24); Bun/Creatinine Ratio 8.8 (12.0-20.0); CO2, Blood 22 mmol/L (21-32); Calcium, Blood 8.1 mg/dL (8.5-10.1); Chloride, Blood 104 mmol/L (98-108); Creatinine, Blood 6.36 mg/dL (0.60-1.20); Glomerular Filtration Rate 9 (60-); Glucose, Blood 225 mg/dL (70-99); Phosphorus, Blood 5.2 mg/dL (2.5-4.9); Potassium, Blood 4.8 mmol/L (3.5-5.5); Sodium, Blood 137 mmol/L (136-145)
--- NOTE | 2022-01-04 11:05 | NUR ---
PT PLEASNT COOP A/O. TALKATIVE. DIALYSIS PERMACATH RUCW. CDI. DIALYSIS YEST. EXPCT TOMORROW AGAIN. H/R REG, NO MURMER NOTED. NO TELE. LUNGS CLEAR, RESP EASY, UNLABORED. ON R.A. VOIDS IND TO BATHROOM. BED IN LOW POSITION, CALL LITE IN REACH, CALLS APPROP
--- NOTE | 2022-01-04 16:45 | NUR ---
PT PLEASANT TODAY. DESIRING TO SLEEP MOST OF DAY. KEPT LIGHT OFF, PT AWAKENS EASILY FOR MEDS ETC. EXPECTING TO D/C TOMORROW AFTER DIALYSIS IS PLAN. NO OTHER CONCERNS NOTED. BED IN LOW POSITION, CALL LITE IN REACH, INDEPENDANT IN ROOM. CALLS APPROP
--- NOTE | 2022-01-05 04:17 | NUR ---
SHIFT SUMMARY A/O AND IND IN RM. PLEASANT THROUGHOUT SHIFT. VSS. FOLLOWED FLUID RESTRICTION. REPORTS VOIDING AND PASSING STOOL. NO PAIN REPORTED. CALLING APPROPRIATLEY, CALL LIGHT IN REACH. WILL CONTINUE TO MONITOR AND REPORT TO ONCOMING RN.
--- NOTE | 2022-01-05 06:38 | NUR ---
APPROACHED DR SHELBY BY PT ROOM AND REPORTED PT LAB VALUES, 9.7 HgB AND 5.3 POTASSIUM.
[2022-01-05] MEDS ORDERED: AMLO5 PO (12:24)
[2022-01-05] MEDS ORDERED: METO25 PO (12:25)
[2022-01-05] MEDS ORDERED: HUMALOG KW100 UNIT/1 SC (12:26)
[2022-01-05] MEDS ORDERED: TEMA7.5 PO (12:26)
[2022-01-05] MEDS ORDERED: CATAPRES-TTS 21 EAC1 TOP (12:27)
[2022-01-05] MEDS ORDERED: BUME2 PO (12:28)
[2022-01-05] MEDS ORDERED: CATAPRES0.1 MG PO (12:30)
--- NOTE | 2022-01-05 13:30 | NUR ---
DISCHARGE SUMMARY PATIENT IS ALERT AND ORIENTED. PATIENT HAD DIALYSIS TODAY. VITAL SIGNS REVIEWED. PATIENT HAS HAD NO COMPLAINTS OF SOB, PAIN, NAUSEA, VOMITTING THIS SHIFT. PATIENT HAS HAD NO ACUTE EVENTS THIS SHIFT. PATIENT WAS WHEELED OUT TO PATIENTS OWN VEHICLE BY CHASE RASHID. IVS REMOVED WNL.
== END 2022-01-05 13:19 | disposition home or self-care (01) | DRG 673 ==
LOC: ER 00:47 → ERHOLD 03:54 → ICUE 03:54 → MEDS 12-31 05:14
PROVIDERS: Internal Medicine; Internal Medicine Nephrology; Student in an Organized Health Care Education/Training Program; ADMIT Internal Medicine
PROC: 5A1D70Z Performance of Urinary Filtration, Intermittent, Less than 6 Hours Per Day (ICD-10-PCS; principal; 2021-12-28)
PROC: 5A09357 Assistance with Respiratory Ventilation, Less than 24 Consecutive Hours, Continuous Positive Airway Pressure (ICD-10-PCS; 2021-12-28)
PROC: 0JH63XZ Insertion of Tunneled Vascular Access Device into Chest Subcutaneous Tissue and Fascia, Percutaneous Approach (ICD-10-PCS; 2021-12-28)
PROC: 02HV33Z Insertion of Infusion Device into Superior Vena Cava, Percutaneous Approach (ICD-10-PCS; 2021-12-28)
PROC: B518YZA Fluoroscopy of Superior Vena Cava using Other Contrast, Guidance (ICD-10-PCS; 2021-12-28)
PROC: B548ZZA Ultrasonography of Superior Vena Cava, Guidance (ICD-10-PCS; 2021-12-28)
DX: N17.9 Acute kidney failure, unspecified (principal); J96.01 Acute respiratory failure with hypoxia; I50.31 Acute diastolic (congestive) heart failure; I13.2 Hypertensive heart and chronic kidney disease with heart failure and with stage 5 chronic kidney disease, or end stage renal disease; I16.1 Hypertensive emergency; E87.2 Acidosis; Z68.41 Body mass index [BMI] 40.0-44.9, adult; N18.6 End stage renal disease; G47.33 Obstructive sleep apnea (adult) (pediatric); Z20.822 Contact with and (suspected) exposure to COVID-19; D64.89 Other specified anemias; E78.5 Hyperlipidemia, unspecified; E11.22 Type 2 diabetes mellitus with diabetic chronic kidney disease; Z99.2 Dependence on renal dialysis; Z79.4 Long term (current) use of insulin; E87.5 Hyperkalemia; E66.9 Obesity, unspecified; Z99.81 Dependence on supplemental oxygen; Z79.899 Other long term (current) drug therapy; D63.1 Anemia in chronic kidney disease
CPT/HCPCS: 0241U; 31500; 36415; 36558; 51702; 71045; 76770; 76937; 77001; 80053; 80069; 80074; 81001; 82550; 82947; 83036; 83735; 83880; 84132; 84484; 85014; 85018; 85025; 85027; 86317; 86480; 93005; 93010; 94002; 94644; 94660; 94762; 96365-59; 96366-59; 96375-59; 97161; 97530; 99152; 99153; 99285-25; A9270; C1750; C1769; C8929; J0360; J0881; J1644; J1650; J1815; J1940; J2250; J2405; J2765; J3010; J7030; J7040; Q9957